=== PATIENT | female | born 1990 | race African-American/Black ===

== ENCOUNTER 2018-04-03 11:15 | Emergency (ER) | payer SELFPAY ==
--- NOTE | 2018-04-03 12:05 | ER Document Report ---
ED Medical Screen (RME) - General Chief Complaint: Vaginal Discharge Stated Complaint: URINARY ISSUE Time Seen by Provider: 04/03/18 12:03 [facility] - Follow up as needed Mode of Arrival: Ambulatory Information source: Patient Notes: 27-year-old female presents emergency department with complaints of lower abdominal pain, abnormal vaginal discharge, dysuria, increased urgency, increased frequency. Patient denies any nausea, vomiting, diarrhea, constipation, fever, chills. Patient does not know if she has a sexually transmitted disease or not. Pain is a cramping sensation located in "left ovarian area" per patient. No radiation. No alleviating or exacerbating factors. I have greeted and performed a rapid initial assessment of this patient. A comprehensive ED assessment and evaluation of the patient, analysis of test results and completion of the medical decision making process will be conducted by additional ED providers. PHYSICAL EXAMINATION: GENERAL: Well-appearing, well-nourished and in no acute distress. HEAD: Atraumatic, normocephalic. EYES: Pupils equal round extraocular movements intact, conjunctiva are normal. ENT: Nares patent NECK: Normal range of motion LUNGS: No respiratory distress Musculoskeletal: Normal range of motion NEUROLOGICAL: Normal speech, normal gait. PSYCH: Normal mood, normal affect. SKIN: Warm, Dry, normal turgor, no rashes or lesions noted. TRAVEL OUTSIDE OF THE [place] IN LAST 30 DAYS: No - Related Data Allergies/Adverse Reactions: No Known Allergies Allergy (Verified 04/03/18 12:01) Past Medical History - Social History Chew tobacco use (# tins/day): No Frequency of alcohol use: None Drug Abuse: Marijuana Pulmonary Medical History: Reports: Hx Asthma - childhood Renal/ Medical History: Denies: Hx Peritoneal Dialysis Past Surgical History: Reports: Hx Section - Immunizations Immunizations up to date: Yes Hx Diphtheria, Pertussis, Tetanus Vaccination: Yes - 02/03/13 Physical Exam - Vital signs Vitals: Temp Pulse Resp BP Pulse Ox 98.3 F 81 16 123/54 L 100 04/03/18 11:36 04/03/18 11:36 04/03/18 11:36 04/03/18 11:36 04/03/18 11:36 Course - Vital Signs Vital signs: Temp Pulse Resp BP Pulse Ox 98.3 F 81 16 123/54 L 100 04/03/18 11:36 04/03/18 11:36 04/03/18 11:36 04/03/18 11:36 04/03/18 11:36 Doctor's Discharge - Discharge [facility] - Follow up as needed
--- NOTE | 2018-04-03 13:58 | RADIOLOGY REPORT (SQ) ---
EXAM DESCRIPTION: U/S NON OB PEL W/DOPPLER COMPLETED DATE/TIME: 04/03/2018 1:32 pm REASON FOR STUDY: Left ovarian pain COMPARISON: None. TECHNIQUE: Dynamic and static grayscale images acquired of the pelvis via transabdominal approach an d recorded on PACS. Additional selected color Doppler and spectral images recorded. LIMITATIONS: None. FINDINGS: UTERUS: The uterus measures 10.1 x 4.4 x 6.3 cm. The uterus appears retroverted. ENDOMETRIAL STRIPE: Endometrial lining is prominent measuring 1.4 cm. . CERVIX: Cervix measures 4.2 cm. No nabothian cysts. RIGHT OVARY AND DOPPLER: The right ovary is visualized measuring 3.5 x 2.2 x 3.3 cm with follicular c yst. Doppler flow is noted. LEFT OVARY AND DOPPLER: The left ovary is prominent measuring 4.7 cm x 3.2 cm x 4 cm. Doppler flow i s noted. Within the left ovary there is evidence of a simple cyst measuring 2.3 x 2.1 x 2 cm. FREE FLUID: None noted. OTHER: No other significant finding. IMPRESSION: Prominent endometrial canal echoes could be associated with menstruation. Evidence of 2 .3 x 2.1 x 2 cm simple left ovarian cyst TECHNICAL DOCUMENTATION: JOB ID: [id number] [employer]- All Rights Reserved Rev-07/10 Reading location - IP/workstation name: [email or web address]
[2018-04-03 14:38] LABS: T.VAGINALIS (WET MOUNT) NO TRICHOMONAS SEEN; YEAST (WET MOUNT) NO YEAST SEEN
[2018-04-03 14:39] LABS: BACTERIA (WET MOUNT) 4+ BACTERIA SEEN; EPITHELIALS (WET MOUNT) 3+ EPITHELIALS SEEN; WBCS (WET MOUNT) FEW WBCS SEEN
[2018-04-03 14:44] LABS: APPEARANCE,URINE CLOUDY; BILIRUBIN,URINE NEGATIVE (NEGATIVE); COLOR,URINE YELLOW; GLUCOSE, URINE NEGATIVE (NEGATIVE); KETONES,URINE NEGATIVE (NEGATIVE); LEUKOCYTE ESTERASE,URINE LARGE (NEGATIVE); NITRITE,URINE NEGATIVE (NEGATIVE); PROTEIN,URINE NEGATIVE (NEGATIVE); URINE SPECIFIC GRAVITY 1.016
--- NOTE | 2018-04-03 15:28 | ER Document Report ---
ED General - General Chief Complaint: Vaginal Discharge Stated Complaint: URINARY ISSUE Time Seen by Provider: 04/03/18 12:03 Primary Care Provider: [facility] [NO LOCAL MD] - Follow up as needed Mode of Arrival: Ambulatory Notes: VARUN HPI: 27-year-old female presents emergency department with complaints of lower abdominal pain, abnormal vaginal discharge, dysuria, increased urgency, increased frequency. Patient denies any nausea, vomiting, diarrhea, constipation, fever, chills. Patient does not know if she has a sexually transmitted disease or not. Pain is a cramping sensation located in "left ovarian area" per patient. No radiation. No alleviating or exacerbating factors. MY HPI: Same as above, patient states within the last 3 months she has been to the [facility] for STI testing and treatment. States she has been sexually active since and wishes to be tested again. Past medical history: None Medications: None Allergies: None Last menstrual period 03/20/2018 TRAVEL OUTSIDE OF THE [place] IN LAST 30 DAYS: No - Related Data Allergies/Adverse Reactions: No Known Allergies Allergy (Verified 04/03/18 12:01) Past Medical History - General Information source: Patient - Social History Smoking Status: Current Every Day Smoker Chew tobacco use (# tins/day): No Frequency of alcohol use: None Drug Abuse: Marijuana Family History: Reviewed & Not Pertinent Patient has suicidal ideation: No Patient has homicidal ideation: No Pulmonary Medical History: Reports: Hx Asthma - childhood Renal/ Medical History: Denies: Hx Peritoneal Dialysis Past Surgical History: Reports: Hx Section - Immunizations Immunizations up to date: Yes Hx Diphtheria, Pertussis, Tetanus Vaccination: Yes - 02/03/13 Review of Systems - Review of Systems Constitutional: denies: Chills, Fever EENT: No symptoms reported Cardiovascular: No symptoms reported Respiratory: No symptoms reported Gastrointestinal: See HPI Genitourinary: See HPI Female Genitourinary: See HPI Musculoskeletal: See HPI Skin: No symptoms reported Hematologic/Lymphatic: No symptoms reported Neurological/Psychological: No symptoms reported Physical Exam - Vital signs Vitals: Temp Pulse Resp BP Pulse Ox 98.3 F 81 16 123/54 L 100 04/03/18 11:36 04/03/18 11:36 04/03/18 11:36 04/03/18 11:36 04/03/18 11:36 - Notes Notes: GENERAL: Alert, interacts well. No acute distress. HEAD: Normocephalic, atraumatic. EYES: Pupils equal, round, and reactive to light. Extraocular movements intact. ENT: Oral mucosa moist, tongue midline. NECK: Full range of motion. Supple. Trachea midline. LUNGS: Clear to auscultation bilaterally, no wheezes, rales, or rhonchi. No respiratory distress. HEART: Regular rate and rhythm. No murmur ABDOMEN: Soft, non-tender. Non-distended. Bowel sounds present in all 4 quadrants. Minor pain upon palpation of the left pelvic region and suprapubic. EXTREMITIES: Moves all 4 extremities spontaneously. No edema, normal radial and dorsalis pedis pulses bilaterally. No cyanosis. BACK: no cervical, thoracic, lumbar midline tenderness. No saddle anesthesia, normal distal neurovascular exam. No CVA tenderness noted bilaterally NEUROLOGICAL: Alert and oriented x3. Normal speech. cranial nerves II through XII grossly intact PSYCH: Normal affect, normal mood. SKIN: Warm, dry, normal turgor. No rashes or lesions noted. Course - Re-evaluation Re-evalutation: 04/03/18 15:25 Patient's urine does show signs of urinary tract infection, hCG negative. Patient's wet mount does show signs of bacterial vaginosis. Patient's ultrasound shows a left ovarian cyst consistent with her left pelvic pain. No evidence of torsion. Patient's pelvic exam does reveal a malodorous white discharge in the cul-de-sac with no cervical motion tenderness minor left adnexal tenderness and no right adnexal tenderness. Discussed results with patient at bedside, patient stable for discharge. 04/03/18 15:42 Patient wishes to decline prophylactic treatment of gonorrhea and chlamydia at this time. - Vital Signs Vital signs: Temp Pulse Resp BP Pulse Ox 98.3 F 81 16 123/54 L 100 04/03/18 11:36 04/03/18 11:36 04/03/18 11:36 04/03/18 11:36 04/03/18 11:36 - Laboratory Laboratory results interpreted by me: 04/03/18 14:18 Urine Urobilinogen 4.0 H Ur Leukocyte Esterase LARGE H Urine Ascorbic Acid 40 H Discharge - Discharge Clinical Impression: Bacterial vaginosis Urinary tract infection Qualifiers: Urinary tract infection type: acute cystitis Hematuria presence: without hematuria Qualified Code(s): N30.00 - Acute cystitis without hematuria Condition: Stable Disposition: HOME, SELF-CARE Instructions: Cephalexin ([facility]), Urinary Tract Infection ([facility]), Vaginosis, Bacterial ([facility]) Additional Instructions: As we discussed you have been seen and treated in the emergency department for a urinary tract infection and bacterial vaginosis. You should take antibiotics as prescribed. Please also follow-up with your primary care provider in the next 24-48 hours. Please return to the emergency room for any other concerning symptoms. Prescriptions: Cephalexin Monohydrate [Keflex 500 mg Capsule] 500 mg PO BID 7 Days #14 capsule Metronidazole [Flagyl 500 mg Tablet] 500 mg PO BID #14 tablet [facility]NO [facility] - Follow up as needed
[2018-04-03 15:51] VITALS: BP 120/51
[2018-04-03 16:05] LABS: CHLAM PCR NOT DETECTED (NOT DETECT); GON PCR NOT DETECTED (NOT DETECT)
== END 2018-04-03 16:03 | disposition home or self-care (01) ==
LOC: ER 11:15
DX: N30.00 Acute cystitis without hematuria (principal); N76.0 Acute vaginitis; B96.89 Other specified bacterial agents as the cause of diseases classified elsewhere; F17.200 Nicotine dependence, unspecified, uncomplicated
CPT/HCPCS: 76856; 81001; 81025; 87086; 87088; 87186; 87210; 87491; 87591; 93976; 99284

== ENCOUNTER 2018-04-29 11:33 | Emergency (ER) | payer SELFPAY ==
--- NOTE | 2018-04-29 12:06 | ER Document Report ---
ED Medical Screen (RME) - General Chief Complaint: Vaginal Bleeding Stated Complaint: VAGINAL BLEEDING Time Seen by Provider: 04/29/18 12:03 Primary Care Provider: ATIF TOBIN MD [Primary Care Provider] - Follow up as needed Mode of Arrival: Ambulatory Information source: Patient Notes: This is a 28-year-old female 3 para 2 (positive home test), blood type O+, presents to the emergency room with vaginal bleeding and cramping for the last several hours. TRAVEL OUTSIDE OF THE [place] IN LAST 30 DAYS: No - Related Data Allergies/Adverse Reactions: No Known Allergies Allergy (Verified 04/03/18 12:01) Past Medical History - Social History Chew tobacco use (# tins/day): No Frequency of alcohol use: None Drug Abuse: Marijuana Pulmonary Medical History: Reports: Hx Asthma - childhood Renal/ Medical History: Denies: Hx Peritoneal Dialysis Past Surgical History: Reports: Hx Section - Immunizations Immunizations up to date: Yes Hx Diphtheria, Pertussis, Tetanus Vaccination: Yes - 02/03/13 Physical Exam - Vital signs Vitals: Temp Pulse Resp BP Pulse Ox 99.1 F 67 16 135/58 H 100 04/29/18 11:40 04/29/18 11:40 04/29/18 11:40 04/29/18 11:40 04/29/18 11:40 Course - Vital Signs Vital signs: Temp Pulse Resp BP Pulse Ox 99.1 F 67 16 135/58 H 100 04/29/18 11:40 04/29/18 11:40 04/29/18 11:40 04/29/18 11:40 04/29/18 11:40 Doctor's Discharge - Discharge Referrals: ATIF TOBIN MD [Primary Care Provider] - Follow up as needed
[2018-04-29 12:37] LABS: ABSOLUTE BASOPHILS # (AUTO) 0.1 10^3/uL (0.0-0.2); ABSOLUTE EOSINOPHILS # (AUTO) 0.2 10^3/uL (0.0-0.6); ABSOLUTE LYMPHOCYTES (AUTO) 2.6 10^3/uL (0.5-4.7); ABSOLUTE MONOCYTES (AUTO) 0.5 10^3/uL (0.1-1.4); ABSOLUTE NEUT (AUTO) 5.6 10^3/uL (1.7-8.2); BASOPHILS % (AUTO) 0.6 % (0-2); EOSINOPHILS % (AUTO) 2.1 % (0-6); HEMATOCRIT 37.4 % (36.0-47.0); HEMOGLOBIN 12.8 g/dL (12.0-15.5); LYMPHOCYTES % (AUTO) 28.9 % (13-45); MEAN CORPUSCULAR HEMOGLOBIN 32.5 pg (27.0-33.4); MEAN CORPUSCULAR HGB CONC 34.2 g/dL (32.0-36.0); MEAN CORPUSCULAR VOLUME 95 fl (80-97); MONOCYTES % (AUTO) 5.3 % (3-13); PLATELET COUNT 260 10^3/uL (150-450); RED BLOOD COUNT 3.93 10^6/uL (3.72-5.28); RED CELL DISTRIBUTION WIDTH 13.6 % (11.5-14.0); SEGMENTED NEUTROPHILS % (AUTO) 63.1 % (42-78); TOTAL CELLS COUNTED % (AUTO) 100 %; WHITE BLOOD COUNT 8.9 10^3/uL (4.0-10.5)
--- NOTE | 2018-04-29 14:10 | ER Document Report ---
ED GI/ - General Chief Complaint: Vaginal Bleeding Stated Complaint: VAGINAL BLEEDING Time Seen by Provider: 04/29/18 12:03 Primary Care Provider: ATIF TOBIN MD [ACTIVE STAFF] - Follow up as needed Mode of Arrival: Ambulatory Information source: Patient Notes: 28-year-old female presents to ED for complaint of lower abdominal pain vaginal bleeding with a positive home test. She states her blood type is O+. She has cramping and bleeding for several hours today. She is alert and oriented respirations regular and unlabored speaking in full sentences walks with a even steady gait. TRAVEL OUTSIDE OF THE [place] IN LAST 30 DAYS: No - HPI Patient complains to provider of: Pelvic pain, , Vaginal bleeding Onset: This morning Timing/Duration: Gradual Quality of pain: Cramping Severity at maximum: Moderate Severity in ED: Moderate Pain Level: 2 Vaginal bleeding (Compared to normal period): Spotting Associated symptoms: Other - Vaginal bleeding in Exacerbated by: Denies Relieved by: Denies Similar symptoms previously: No Recently seen / treated by doctor: No - Related Data Allergies/Adverse Reactions: No Known Allergies Allergy (Verified 04/03/18 12:01) Past Medical History - General Information source: Patient - Social History Smoking Status: Current Every Day Smoker Cigarette use (# per day): Yes Chew tobacco use (# tins/day): No Smoking Education Provided: Yes - 4 minutes Frequency of alcohol use: None Drug Abuse: Marijuana Lives with: Family Family History: Reviewed & Not Pertinent Patient has suicidal ideation: No Patient has homicidal ideation: No - Past Medical History Cardiac Medical History: Reports: None Pulmonary Medical History: Reports: Hx Asthma - childhood EENT Medical History: Reports: None Neurological Medical History: Reports: None Endocrine Medical History: Reports: None Renal/ Medical History: Reports: None Malignancy Medical History: Reports: None GI Medical History: Reports: None Musculoskeletal Medical History: Reports None Skin Medical History: Reports None Psychiatric Medical History: Reports: None Traumatic Medical History: Reports: None Infectious Medical History: Reports: None Past Surgical History: Reports: Hx Section - Immunizations Immunizations up to date: Yes Hx Diphtheria, Pertussis, Tetanus Vaccination: Yes - 02/03/13 Review of Systems - Review of Systems Constitutional: No symptoms reported EENT: No symptoms reported Cardiovascular: No symptoms reported Respiratory: No symptoms reported Gastrointestinal: No symptoms reported Genitourinary: No symptoms reported Female Genitourinary: , Vaginal bleeding, Other Musculoskeletal: No symptoms reported Skin: No symptoms reported Hematologic/Lymphatic: No symptoms reported Neurological/Psychological: No symptoms reported -: Yes All other systems reviewed and negative - Cramping Physical Exam - Vital signs Vitals: Temp Pulse Resp BP Pulse Ox 99.1 F 67 16 135/58 H 100 04/29/18 11:40 04/29/18 11:40 04/29/18 11:40 04/29/18 11:40 04/29/18 11:40 Interpretation: Normal - General General appearance: Appears well, Alert - HEENT Head: Normocephalic, Atraumatic Eyes: Normal Pupils: PERRL - Respiratory Respiratory status: No respiratory distress Chest status: Nontender Breath sounds: Normal Chest palpation: Normal - Cardiovascular Rhythm: Regular Heart sounds: Normal auscultation Murmur: No - Abdominal Inspection: Normal Distension: No distension Bowel sounds: Normal Tenderness: Tender - Pelvic Organomegaly: No organomegaly - Back Back: Normal, Nontender - Extremities General upper extremity: Normal inspection, Nontender, Normal color, Normal ROM, Normal temperature General lower extremity: Normal inspection, Nontender, Normal color, Normal ROM, Normal temperature, Normal weight bearing. No: Ruben's sign - Neurological Neuro grossly intact: Yes Cognition: Normal Orientation: AAOx4 Amarilis Coma Scale Eye Opening: Spontaneous Bullard Coma Scale Verbal: Oriented Bullard Coma Scale Motor: Obeys Commands Amarilis Coma Scale Total: 15 Speech: Normal Motor strength normal: LUE, RUE, LLE, RLE Sensory: Normal - Psychological Associated symptoms: Normal affect, Normal mood - Skin Skin Temperature: Warm Skin Moisture: Dry Skin Color: Normal Course - Re-evaluation Re-evalutation: 04/29/18 15:32 Ultrasound and labs discussed with patient and written report of labs given to patient. Patient will be discharged home to follow-up with primary care doctor. And with ASSOCIATE ATTORNEY. Patient was given a lab slip to have a repeat hCG quant done in 48 hours. There was no signs of a on the ultrasound at this time. Quant was very early. - Vital Signs Vital signs: Temp Pulse Resp BP Pulse Ox 98.9 F 66 16 137/60 H 98 04/29/18 15:34 04/29/18 15:34 04/29/18 11:40 04/29/18 15:34 04/29/18 15:34 - Laboratory Result Diagrams: 04/29/18 12:16 Laboratory results interpreted by me: 04/29/18 12:16 Beta HCG, Quant 141.32 H - Diagnostic Test Radiology reviewed: Image reviewed, Reports reviewed Discharge - Discharge Clinical Impression: Vaginal bleeding affecting early Condition: Stable Disposition: HOME, SELF-CARE Additional Instructions: : You are . care is best started as early in as possible. If you're unsure about continuing this , you should discuss this with your physician or with return to [facility] at [facility]. You should take only medications approved by your physician. Acetaminophen can safely be taken for minor pains. As a rule, medication for chronic conditions such as asthma or seizures can safely be continued. You should discuss with the physician every medicine you take. Any regular exercise program can be continued. Talk to your physician, however, before engaging in competitive or demanding sports. Alcohol, smoking, and "street drugs" are dangerous to your baby. Cocaine is especially dangerous. Don't use any illicit drugs! BLEEDING DURING EARLY : You have been evaluated for passing blood while . While we take this symptom very seriously, most women with your degree of bleeding will go on to have a perfectly normal baby. At this time, there is no indication that a miscarriage will occur. (A miscarriage occurs when the fetus is abnormal. There is no medicine or treatment to prevent it.) A more serious cause of bleeding is tubal (or ectopic) . An ultrasound usually can show whether the is in the uterus or in the tube. Sometimes in early , no fetus is seen. In this case, careful follow-up, including repeat blood tests and repeat ultrasound, is necessary. Do not douche or have sex for at least a week, or until OK'd by the doctor. Don't use tampons. Call the doctor or return for re-examination if there is an increase in bleeding or cramping, extreme weakness, fainting, new abdominal pain, fever, or passage of tissue. REPEAT BLOOD TEST: At this time, it is uncertain if you have a viable . During the first three months of , the hormone produced from the placenta will steadily rise, usually doubling in value every 2 - 3 days. In order to determine if your is viable and likely be succesful, a repeat of this blood test for the hormone is recommended in 2 - 3 days. An order for this test to be done as an outpatient is being provided. After you h ave this repeat test done, call your doctor or call us for the results. If the value of the test is increasing as would be expected in a normal , then your is likely to be ok. However, if the value of the test is declining, it will suggest something has happened with your and it will not likely be a successful . FOLLOW-UP CARE: If you have been referred to a physician for follow-up care, call the physicians office for an appointment as you were instructed or within the next two days. If you experience worsening or a significant change in your symptoms (very heavy bleeding with large clots of blood, passage of tissue, more severe abdominal / pelvic pain or cramping, feeling faint or severe weakness, fever, etc.), notify the physician immediately or return to the Emergency Department at any time for re-evaluation. OBSTETRIC-GYNECOLOGIC (OB-[employer]PER[employer]) [facility]YSICI[facility] IN [place]: [facility] [address] [place] [address] [phone] For active duty and dependents diagnosed with a threatened or miscarriage, you should follow up in the following manner: Standard patients who have a local civilian provider should follow up with that provider. Patients of the Family Practice Clinic should call your Team Nurse at 8:00 am the following morning for further instructions. If you are neither a Standard patient nor a patient of the Family Practice Clinic, you should follow up at the [facility] ([facility]). Patients already enrolled in the [facility] OB Clinic, Prime patients not assigned to the Family Practice Clinic, and Active Duty patients not assigned to Family Practice Clinic should report to the [facility] Lab at 8:00 am the next morning that the [facility] OB Clinic is open and then you will be seen in the OB Clinic at 11:00 am. Forms: Elevated Blood Pressure, Follow-Up Laboratory Testing, Smoking Cessation Education Referrals: ATIF TOBIN MD [ACTIVE STAFF] - Follow up as needed
--- NOTE | 2018-04-29 15:04 | RADIOLOGY REPORT (SQ) ---
EXAM DESCRIPTION: U/S OB TRANSVAGINAL W/O DOP COMPLETED DATE/TIME: 04/29/2018 2:38 pm REASON FOR STUDY: preg, vag bleeding COMPARISON: None. TECHNIQUE: Transvaginal static and realtime grayscale images acquired of the pelvis. Additional grayson cted spectral and color Doppler images recorded. All images stored on PACs. CLINICAL AGE: 6 weeks 1 day [facility] LIMITATIONS: None. FINDINGS: UTERUS: No visualized intrauterine . RIGHT ADNEXA: Normal ovary with normal vascular flow. No adnexal free fluid. No adnexal masses. LEFT ADNEXA: Normal ovary with normal vascular flow. No adnexal free fluid. No adnexal masses. FREE FLUID: None. OTHER: No other significant finding. IMPRESSION: NO VISUALIZED INTRA- OR EXTRAUTERINE . bHCG LEVEL TOO LOW TO EXPECT VISUALIZATION OF . ECTOPIC CANNOT BE EXCLUDED. FOLLOW-UP ULTRASOUND AND SERIAL BHCG LEVELS STRONGLY RECOMMENDED TO ACCURATELY ASSESS STATU S. TECHNICAL DOCUMENTATION: JOB ID: [id number] [id number]- All Rights Reserved Reading location - IP/workstation name: [email or web address]
[2018-04-29 15:35] VITALS: BP 137/60
== END 2018-04-29 15:57 | disposition home or self-care (01) ==
LOC: ER 11:33
DX: O20.9 Hemorrhage in early pregnancy, unspecified (principal); O99.331 Smoking (tobacco) complicating pregnancy, first trimester
CPT/HCPCS: 36415; 76817; 84702; 85025; 99284; 99406

== ENCOUNTER → 2018-05-01 | Outpatient (CLI) | payer SELFPAY | LOC: LAB 10:21 | PROVIDERS: ATTEND Nurse Practitioner Family | DX: O20.9 Hemorrhage in early pregnancy, unspecified (principal) | CPT/HCPCS: 36415; 84702 ==